=== PATIENT | male | born 1995 | race American Indian/Alaskan Native ===

== ENCOUNTER 2017-04-20 20:24 | Emergency (ER) | payer OTHER ==
[2017-04-20 20:54] VITALS: RESP 18; TEMP 99.1
[2017-04-20 21:17] LABS: BASO # 0.02 K/mm3 (0.0-2.0); BASO % 0.2 % (0.0-3.0); EOS # 0.1 (0.0-0.7); EOS % 0.6 % (1.5-5.0); GRAN # 9.39 (1.4-6.5); GRAN % 75.3 % (50.0-68.0); HEMATOCRIT 40.3 % (42.0-52.0); LYMPH # 2.2 (1.2-3.4); LYMPH % 17.9 % (22.0-35.0); MEAN CORPUSCULAR HEMOGLOBIN 31.1 pg (25.0-35.0); MEAN CORPUSCULAR HGB CONC 35.7 g/dl (31.0-37.0); MEAN PLATELET VOLUME 9.5 fl (7.0-11.0); MONO # 0.8 (0.1-0.6); RED CELL DISTRIBUTION WIDTH 11.6 % (11.5-14.5); WHITE BLOOD COUNT 12.5 10^3/ul (4.5-11.0)
--- NOTE | 2017-04-20 21:22 | ED PDOC ---
Arrival/HPI <Christopher Palacio - Last Filed: 04/20/17 21:34> - General Historian: Patient - History of Present Illness Time/Duration: > week (3 weeks) Symptom Onset: Gradual Symptom Course: Intermittent Quality: Stabbing <Dorys Strauss - Last Filed: 04/21/17 00:22> - General Chief Complaint: Palpitations Time Seen by Provider: 04/20/17 20:33 - History of Present Illness Narrative History of Present Illness (Text): 04/20/17 21:18 22-year-old male presents today with a 3 week history of cough. Patient states initially the cough was productive and for the past 2 weeks it is been dry. He denies fevers or chills. Patient states are the past 3 days he's been having some intermittent sharp stabbing chest pains. He denies shortness of breath. He denies abdominal pain. No nausea vomiting diarrhea or constipation. Patient denies smoking history. Denies drug use. Patient denies dizziness or weakness. Denies URI symptoms. Denies fevers or chills. Denies back pain. Patient denies chest pain at present time. No sick contacts. No other complaints. (Dorys Strauss) Past Medical History - Provider Review Nursing Documentation Reviewed: Yes - Travel History Have you recently traveled outside [place] w/in the past 3 mons?: No - Infectious Disease Hx of Infectious Diseases: None - Tetanus Immunization Tetanus Immunization: Unknown - Psychiatric Hx Psychophysiologic Disorder: No Hx Anxiety: No Hx Bipolar Disorder: No Hx Depression: No Hx Emotional Abuse: No Hx Hallucinations: No Hx Panic Disorder: No Hx Post Traumatic Stress Disorder: No Hx Psychosis: No Hx Physical Abuse: No Hx Schizophrenia: No Hx Sexual Abuse: No Hx Substance Use: No - Anesthesia Hx Anesthesia: No Hx Anesthesia Reactions: No Hx Malignant Hyperthermia: No <Dorys Strauss - Last Filed: 04/21/17 00:22> Family/Social History - Physician Review Nursing Documentation Reviewed: Yes Family/Social History: Unknown Family HX Smoking Status: Never Smoked Hx Alcohol Use: No Hx Substance Use: No <Dorys Strauss - Last Filed: 04/21/17 00:22> Allergies/Home Meds <Christopher Palacio - Last Filed: 04/20/17 21:34> <Dorys Strauss - Last Filed: 04/21/17 00:22> Allergies/Adverse Reactions: Allergies No Known Allergies Allergy (Verified 04/20/17 20:39) Review of Systems - Review of Systems Constitutional: absent: Fatigue, Fevers ENT: absent: Sore Throat, Sinus Congestion Respiratory: Cough. absent: SOB Cardiovascular: Chest Pain, Palpitations Gastrointestinal: absent: Abdominal Pain, Nausea, Vomiting Genitourinary Male: absent: Dysuria Musculoskeletal: absent: Arthralgias, Back Pain, Neck Pain Skin: absent: Rash, Pruritis Neurological: absent: Headache, Dizziness Psychiatric: absent: Anxiety, Depression, Suicidal Ideation <Dorys Strauss - Last Filed: 04/21/17 00:22> Physical Exam Vital Signs Reviewed: Yes Temperature: Afebrile Blood Pressure: Hypertensive Pulse: Tachycardic Respiratory Rate: Normal Appearance: Positive for: Well-Appearing, Non-Toxic, Comfortable Pain Distress: None Mental Status: Positive for: Alert and Oriented X 3 - Systems Exam Head: Present: Atraumatic Mouth: Present: Moist Mucous Membranes Neck: Present: Normal Range of Motion Respiratory/Chest: Present: Clear to Auscultation, Good Air Exchange. No: Respiratory Distress, Accessory Muscle Use, Wheezes, Rhonchi, Tachypneic, Tender to Palpation Cardiovascular: Present: Normal S1, S2, Tachycardic. No: Regular Rate and Rhythm, Murmurs Abdomen: No: Tenderness, Distention, Rebound, Guarding Back: Present: Normal Inspection. No: CVA Tenderness, Midline Tenderness, Paraspinal Tenderness Upper Extremity: Present: Normal ROM Lower Extremity: Present: Normal ROM. No: Edema, Tenderness Neurological: Present: GCS=15, Speech Normal Skin: Present: Warm, Dry, Normal Color. No: Rashes Psychiatric: Present: Alert, Oriented x 3 <Dorys Strauss - Last Filed: 04/21/17 00:22> Vital Signs Temp Pulse Resp BP Pulse Ox 04/20/17 23:56 81 18 98 04/20/17 20:52 99.1 F 100 H 18 136/106 H 97 04/20/17 20:36 98.0 F 103 H 16 143/119 H 99 Medical Decision Making <Christopher Palacio - Last Filed: 04/20/17 21:34> <Dorys Strauss - Last Filed: 04/21/17 00:22> ED Course and Treatment: 04/20/17 21:22 22yr old male with 3 week history of cough, with 3 days of intermittent CP. denies CP at present time. cbc: wbc; 12.5 cmp; wnl trop; wnl cpk; minimally elevated ekg; sinus rhythm with sinus arrhythmia at 87b/m normal axis normal intervals, early repolarization cxr; no infiltrate or effusion, 04/21/17 00:09 pt reassessment; pt non toxic well appearing; no distress. pt with elevated bp; no hx of htn. still without cp or sob. will place patient on zithromax for cough x 3 weeks. discussed all results in depth with patient; advised f/u with software asset manager within the next 2 days. advised immediate return if symptoms worsen,persist or if new symptoms develop. advised patient of elevated blood pressure and need for immediate f/u. Patient verbalizes understanding of discharge instructions and need for immediate followup. all aspects of this case were discussed the attending of record. Impression: Cough, chest pain Tylenol every 4 hours as needed for pain Increase fluids Zithromax daily 4 days Follow-up with the primary care physician within the next 2 days Follow-up with the software asset manager within the next 2 days Return immediately if symptoms worsen persist or if new concerning symptoms develop: High fevers, chest pain, dizziness, shortness of breath, nausea or vomiting or if any other concerning symptoms develop (Dorys Strauss) - Lab Interpretations Lab Results: 04/20/17 21:00 04/20/17 21:00 Lab Results 04/20/17 22:35: Urine Color Yellow, Urine Appearance Clear, Urine pH 6.0, Ur Specific [place] 1.020, Urine Protein 30 H, Urine Glucose (UA) Negative, Urine Ketones 15 H, Urine Blood Negative, Urine Nitrate Negative, Urine Bilirubin Negative, Urine Urobilinogen 0.2, Ur Leukocyte Esterase Negative, Urine RBC Negative, Urine WBC 0 - 2, Ur Epithelial Cells 0 - 2, Urine Bacteria Trace 04/20/17 21:00: WBC 12.5 H D, RBC 4.63, Hgb 14.4, Hct 40.3 L, MCV 87.0, MCH 31.1 , MCHC 35.7, RDW 11.6, Plt Count 348, MPV 9.5, Gran % 75.3 H, Lymph % (Auto) 17.9 L, [place] % (Auto) 6.0, Eos % (Auto) 0.6 L, Baso % (Auto) 0.2, Gran # 9.39 H , Lymph # 2.2, [place] # 0.8 H, Eos # 0.1, Baso # 0.02 04/20/17 21:00: Sodium 139, Potassium 4.0, Chloride 101, Carbon Dioxide 27, Anion Gap 15, BUN 14, Creatinine 1.1, Est GFR ( Amer) > 60, Est GFR (Non- Af Amer) > 60, Random Glucose 72, Calcium 10.5, Total Bilirubin 1.0, AST 45, ALT 34, Alkaline Phosphatase 85, Lactate Dehydrogenase 627, Total Creatine Kinase 647 H, CK-MB (CK-2) 3.1, CK-MB (CK-2) % Cancelled, Troponin I < 0.01, Total Protein 8.4 H, Albumin 4.8, Globulin 3.6, Albumin/Globulin Ratio 1.3 - RAD Interpretation Radiology Orders: 04/20/17 20:48 CHEST TWO VIEWS (PA/LAT) [RAD] Stat - Medication Orders Current Medication Orders: Discontinued Medications Sodium Chloride (Sodium Chloride 0.9%) 1,000 mls @ 999 mls/hr IV .Q1H1M STA Stop: 04/20/17 22:44 Last Admin: 04/20/17 21:53 Dose: 999 mls/hr eMAR Start Stop Document 04/20/17 21:53 GMD (Rec: 04/20/17 21:53 GMD [facility] [id number]) Intravenous Solution Start Date 04/20/17 Start Time 21:53 End Date 04/20/17 End time 22:54 Total Infusion Time 61 - PA / 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 <Christopher Palacio - Last Filed: 04/20/17 21:34> Disposition/Present on Arrival <Christopher Palacio - Last Filed: 04/20/17 21:34> - Present on Arrival Any Indicators Present on Arrival: No History of DVT/PE: No History of Uncontrolled Diabetes: No Urinary Catheter: No History of Decub. Ulcer: No History Surgical Site Infection Following: None - Disposition Have Diagnosis and Disposition been Completed?: Yes Disposition Time: 00:16 Patient Plan: Discharge <Dorys Strauss - Last Filed: 04/21/17 00:22> - Disposition Diagnosis: Cough, Chest pain Disposition: HOME/ ROUTINE Condition: GOOD Discharge Instructions (ExitCare): Chest Pain (ED) Additional Instructions: Tylenol every 4 hours as needed for pain Increase fluids Zithromax daily 4 days Follow-up with the primary care physician within the next 2 days Follow-up with the software asset manager within the next 2 days Return immediately if symptoms worsen persist or if new concerning symptoms develop: High fevers, chest pain, dizziness, shortness of breath, nausea or vomiting or if any other concerning symptoms develop Prescriptions: Azithromycin [Zithromax] 250 mg PO DAILY #4 tab Referrals: Teresa Maher MD [Staff Provider] - Follow up with primary Danish Kern MD [Staff Provider] - Follow up with primary Forms: QingKe ([place]ayan)
[2017-04-20 21:40] LABS: TROPONIN I < 0.01 ng/mL
[2017-04-20 21:42] LABS: ALB/GLOB RATIO 1.3 (1.1-1.8); ALKALINE PHOSPHATASE 85 U/L (38-126); ALT/SGPT 34 U/L (7-56); AST/SGOT 45 U/L (17-59); BLOOD UREA NITROGEN 14 mg/dL (7-21); CALCIUM 10.5 mg/dL (8.4-10.5); CARBON DIOXIDE 27 mmol/L (21-33); CHLORIDE 101 mmol/L (98-107); GFR AFRICAN-AMERICAN > 60; GLUCOSE,RANDOM 72 mg/dL (70-110); SODIUM 139 mmol/L (132-148); TOTAL PROTEIN 8.4 g/dL (5.8-8.3)
[2017-04-20] MEDS ORDERED: Sodium Chloride 0.9% 1,000 ML IV STA (21:44)
[2017-04-20 22:50] LABS: URINE APPEARANCE CLEAR (CLEAR); URINE BILIRUBIN NEGATIVE (NEGATIVE); URINE BLOOD NEGATIVE (NEGATIVE); URINE COLOR YELLOW (YELLOW); URINE GLUCOSE (UA) NEGATIVE (NEGATIVE); URINE KETONE 15 mg/dL (NEGATIVE); URINE LEUKOCYTE ESTERASE NEGATIVE Leu/uL (NEGATIVE); URINE PROTEIN 30 mg/dL (<30 mg/dL); URINE UROBILINOGEN 0.2 E.U./dL (<1 E.U./dL)
[2017-04-20 23:04] LABS: URINE RBC NEGATIVE /hpf (0-2)
[2017-04-20 23:05] LABS: URINE BACTERIA TRACE (NEG); URINE EPITHELIAL CELLS 0 - 2 /hpf (0-5); URINE WBC 0 - 2 /hpf (0-6)
[2017-04-20 23:57] VITALS: PULSE 81; O2SAT 98
[2017-04-21 00:11] VITALS: BP 173/83
--- NOTE | 2017-04-21 08:59 | RAD ---
HISTORY: cough x 3 weeks COMPARISON: No prior. TECHNIQUE: Chest PA and lateral FINDINGS: LUNGS: No active pulmonary disease. PLEURA: No significant pleural effusion identified. No pneumothorax apparent. CARDIOVASCULAR: Normal. OSSEOUS STRUCTURES: No significant abnormalities. VISUALIZED UPPER ABDOMEN: Normal. OTHER FINDINGS: None. IMPRESSION: No active disease. Concordant results with the preliminary interpretation rendered by the emergency department physician procedure.
--- NOTE | 2017-04-21 16:21 | CARD ---
APPROVED REPORT EKG Measurement Heart [id number] <Conclusion> Sinus rhythm with marked sinus arrhythmia Possible Left atrial enlargement ST elevation, probably due to early repolarization Borderline ECG
== END 2017-04-21 00:24 | disposition home or self-care (01) ==
LOC: ED 20:24
DX: R07.9 Chest pain, unspecified (principal); R05 Cough
CPT/HCPCS: 71020; 80053; 81001; 82550; 82553; 83615; 84484; 85025; 93005; 96360; 99285; J7040